=== PATIENT | female | born 1960 | race Caucasian/White ===

== ENCOUNTER 2018-07-07 12:41 | Inpatient (IN) | payer OTHER ==
[~2018-07-07] VITALS: Ht 162.6 cm; Wt 53.5 kg
[2018-07-07 12:41] VITALS: BP_SYST 140
--- NOTE | 2018-07-07 12:41 | NUR ---
Placed in room 01. Placed on personnel monitor, blood pressure machine and pulse oximeter. To gown for exam. Side rails up. Report given to EMORY Mloina.
[2018-07-07] MEDS ORDERED: KETOROLAC TROMETHAMINE 15 MG VIAL IVP ONE (13:30)
[2018-07-07] MEDS ORDERED: LORazepam 2 MG/ML VIAL (FOR ER USE) IVP ONE (13:30)
[2018-07-07 14:06] LABS: BASOPHILS % (AUTO) 0.4 % (0.0-2.0); EOSINOPHILS # (AUTO) 0.1 K/uL (0.0-0.4); EOSINOPHILS % (AUTO) 2.2 % (0.0-4.0); HEMATOCRIT 38.5 % (36-48); HEMOGLOBIN 13.1 g/dL (12.0-16.0); LYMPHOCYTES # (AUTO) 1.2 K/uL (1.0-5.5); MEAN CORPUSCULAR HEMOGLOBIN 30 pg (27-31); MEAN CORPUSCULAR HGB CONC 34 % (32-36); MEAN CORPUSCULAR VOLUME 88 fL (79.0-98.0); MONOCYTES # (AUTO) 0.6 K/uL (0.0-1.0); MONOCYTES % (AUTO) 9.3 % (1.7-9.3); NEUTROPHILS # (AUTO) 4.1 K/uL (1.8-7.7); NEUTROPHILS % (AUTO) 68.1 % (40.0-70.0); PLATELET COUNT (AUTO) 170 K/uL (130-430); RED BLOOD CELL COUNT(AUTO) 4.39 MIL/uL (4.2-6.2); RED CELL DISTRIBUTION WIDTH 11.8 % (9.0-15.0)
[2018-07-07 14:13] LABS: CALCIUM 9.2 mg/dL (8.4-11.0); CREATININE 0.69 mg/dL (0.55-1.30); POTASSIUM 3.6 mmol/L (3.5-5.1)
[2018-07-07 14:15] LABS: ALBUMIN 3.7 g/dL (3.4-4.8); TOTAL BILIRUBIN 0.5 mg/dL (0.0-1.0)
[2018-07-07] MEDS ORDERED: MAGNESIUM CITRATE 300 ML ORAL SOLUTION PO ONE (14:45)
--- NOTE | 2018-07-07 15:46 | NUR ---
Pt resting comfortably in bed with no signs of distress
[2018-07-07] MEDS ORDERED: ALPRAZolam 0.25 MG TABLET PO PRN (16:45)
[2018-07-07] MEDS ORDERED: ACETAMINOPHEN 650 MG SUPP.RECT RC PRN (16:45)
[2018-07-07] MEDS ORDERED: PANTOPRAZOLE SODIUM 40 MG TAB PO ONE (16:45)
--- NOTE | 2018-07-07 17:07 | NUR ---
Patient will be admitted to [facility]. Admitted to Telemetry unit. Will go to room 118B. Summary report printed. Report will be given at bedside.
--- NOTE | 2018-07-07 17:08 | NUR ---
Admission: Received from ER on a [place] oak flat with the diagnosis of Chest Pain. Patient is ambulatory from rbig oak flat to bed. Pain is mainly on the sternal area with tightness, pain is non radiating. Patient has a non productive cough that started two days ago. Oriented to room routine, Call light within reach.
[2018-07-07 17:24] VITALS: BP_SYST 139
--- NOTE | 2018-07-07 17:28 | NUR ---
CONSULTATION PAGED/CALLED Reason for Consultation: [] CHEST PAIN Person Who was Notified: [] ANALI Consulting Physician: [] DR Brayden MARISCAL [employer] Specialty: [] CARDIOLOGY Ordering Physician: [] DR WEBSTER
[2018-07-07] MEDS ORDERED: ACETAMINOPHEN 325 MG TABLET PO PRN (18:15)
[2018-07-07] MEDS ORDERED: TEMAZEPAM 15 MG CAPSULE PO PRN (18:15)
--- NOTE | 2018-07-07 18:36 | NUR ---
PATIENT IS EATING DINNER AT THIS TIME, NO SIGNS OF DISTRESS NOTED.
[2018-07-07 20:15] VITALS: BP_SYST 130
--- NOTE | 2018-07-07 20:30 | NUR ---
SPONGE BATH BY SELF .ALL THINGS NEEDED GIVEN BY MAIL HANDLER. TOLERATED WELL.
--- NOTE | 2018-07-07 21:15 | NUR ---
PAIN/ANXIETY: COMPLAINS OF MID STERNAL MILD PAIN,NON RADIATING ,DENIES SOB,FEELS ANXIOUS. XANAX AND TYLENOL PO GIVEN.
[2018-07-07 23:00] VITALS: BP_SYST 119
--- NOTE | 2018-07-08 | NUR ---
ROUNDS: PATIENT RESTING QUITELY WITH EYES CLOSE. NO DISTRESS.
--- NOTE | 2018-07-08 02:00 | NUR ---
WOK E UP .VOIDED IN THE BATHROOM. NO DISTRESS.
[2018-07-08 04:06] LABS: BILIRUBIN,URINE NEGATIVE (NEGATIVE); BLOOD, URINE NEGATIVE (NEGATIVE); CLARITY/URINE CLEAR (CLEAR); COLOR,URINE YELLOW (YELLOW); GLUCOSE,URINE NEGATIVE (NEGATIVE); KETONES,URINE NEGATIVE (NEGATIVE); LEUKOCYTE ESTERASE ,URINE NEGATIVE (NEGATIVE); NITRITE, URINE NEGATIVE (NEGATIVE); PH,URINE 5.5 (5.0-8.0); PROTEIN URINE NEGATIVE (NEGATIVE); UROBILINOGEN,URINE 0.2 (0.2-1.0)
--- NOTE | 2018-07-08 06:35 | NUR ---
CLOSING SLEPT AT SHORT INTERVALS. DENIES CHEST PAIN THIS AM. SINUS. NO ACUTE CARDIOPULMONARY DISTRESS. ALL NEEDS WERE ATTENDED.
[2018-07-08 06:45] LABS: ANION GAP 4 (5-15); CALCIUM 8.6 mg/dL (8.4-11.0); CHLORIDE 107 mmol/L (98-107); CREATININE 0.65 mg/dL (0.55-1.30); GLUCOSE 102 mg/dL (70-99); POTASSIUM 3.8 mmol/L (3.5-5.1); SODIUM SERUM 141 mmol/L (136-145); UREA NITROGEN, BLOOD 15 mg/dL (8-21)
[2018-07-08 06:59] LABS: CHOLESTEROL 177 mg/dL (<200); HDL CHOLESTEROL 65 mg/dL (>55); LDL CHOLESTEROL 103 mg/dL (<100); TRIGLYCERIDES 51 mg/dL (30-150)
[2018-07-08 07:00] LABS: ALANINE AMINOTRANSFERASE 27 U/L (12-78); ALBUMIN 3.4 g/dL (3.4-4.8); ASPARTATE AMINOTRANSFERASE 20 U/L (10-37); FREE T4 (FREE THYROXINE) 0.8 ng/dl (0.8-1.5); LIPASE 183 U/L (73-393); THYROID STIMULATING HORMONE 1.76 uIu/mL (0.36-3.74); TOTAL BILIRUBIN 0.6 mg/dL (0.0-1.0)
[2018-07-08 07:03] LABS: BASOPHILS % (AUTO) 0.6 % (0.0-2.0); EOSINOPHILS # (AUTO) 0.2 K/uL (0.0-0.4); HEMATOCRIT 38.6 % (36-48); HEMOGLOBIN 13.2 g/dL (12.0-16.0); LYMPHOCYTES # (AUTO) 1.4 K/uL (1.0-5.5); LYMPHOCYTES % (AUTO) 29.7 % (20.5-51.5); MEAN CORPUSCULAR HEMOGLOBIN 30 pg (27-31); MEAN CORPUSCULAR HGB CONC 34 % (32-36); MEAN CORPUSCULAR VOLUME 87 fL (79.0-98.0); MONOCYTES # (AUTO) 0.4 K/uL (0.0-1.0); MONOCYTES % (AUTO) 9.3 % (1.7-9.3); NEUTROPHILS # (AUTO) 2.7 K/uL (1.8-7.7); NEUTROPHILS % (AUTO) 56.4 % (40.0-70.0); PLATELET COUNT (AUTO) 183 K/uL (130-430); RED BLOOD CELL COUNT(AUTO) 4.42 MIL/uL (4.2-6.2); RED CELL DISTRIBUTION WIDTH 11.9 % (9.0-15.0); WHITE BLOOD COUNT (AUTO) 4.7 K/uL (4.8-10.8)
--- NOTE | 2018-07-08 07:34 | NUR ---
OPENING NOTE: MORNING REPORT WAS TAKEN FROM REEL WINDER NURSE. DR MARISCAL TALKING TO PATIENT. PATIENT SITTING IN BED WITH NO SIGNS OF DISTRESS. DR GOING TO DO STRESS TEST. PATIENT MADE AWARE AND NOT TO EAT ANYTHING. CALL LIGHT IS IN REACH. EDUCATED PATIENT ON IMPORTANCE OF BED ALARM BUT REFUSED. BED IN LOWEST POSITION WITH SIDE RAILS UP. AT BEDSIDE. WILL CONTINUE TO MONITOR.
--- NOTE | 2018-07-08 07:49 | NUR ---
PATIENT LEFT TO GET STRESS TEST.
[2018-07-08 07:53] LABS: ERYTHROCYTE SEDIMENTATION RATE 8 MM/HR (0-20)
[2018-07-08 08:06] VITALS: BP_SYST 113
[2018-07-08] MEDS ORDERED: PANTOPRAZOLE SODIUM 40 MG TAB PO SCH (09:00)
[2018-07-08] MEDS ORDERED: ASPIRIN 81 MG TABLET(ECOTRIN) PO SCH (09:00)
--- NOTE | 2018-07-08 09:14 | NUR ---
PATIENT BACK FROM CARDIO. PATIENT SITTING IN BED WITH NO SIGNS OF DISTRESS. PATIENT JUST ANXIOUS TO LEAVE. GAVE PATIENT MORNING MEDICATIONS. PATIENT HAS NO FURTHER REQUESTS. WILL CONTINUE TO MONITOR.
[2018-07-08 10:18] VITALS: BP_SYST 113
--- NOTE | 2018-07-08 10:45 | NUR ---
D/C Patient Patient given medication reconciliation form and D/C instructions. Exit Care provided. Patient verbalized understanding. MD discussed with patient the results and treatment provided. Ambulatory with steady gait for discharge to home. Patient in stable condition, ID band removed. IV catheter removed, intact and dressing applied, no active bleeding. Patient educated on pain management. All belongings sent with patient. Patient wheeled out to front by charge nurse.
== END 2018-07-08 10:45 | disposition home or self-care (01) | DRG 203 ==
LOC: SED 12:41 → STU 15:29
PROVIDERS: ADMIT Internal Medicine; ATTEND Internal Medicine
DX: J04.10 Acute tracheitis without obstruction (principal); I34.1 Nonrheumatic mitral (valve) prolapse; F41.9 Anxiety disorder, unspecified; F32.9 Major depressive disorder, single episode, unspecified; Z80.7 Family history of other malignant neoplasms of lymphoid, hematopoietic and related tissues; Z88.8 Allergy status to other drugs, medicaments and biological substances; Z88.5 Allergy status to narcotic agent; Z82.49 Family history of ischemic heart disease and other diseases of the circulatory system; Z84.89 Family history of other specified conditions
CPT/HCPCS: 36415; 71045; 80053; 80061; 81003; 82550-TC; 83690-TC; 83880; 84439; 84443-TC; 84484; 85025; 85651-TC; 93005; 93017; 93306; 96374; 96375; 99285; G0378; J1885; J2060